=== PATIENT | male | born 1975 | race Caucasian/White ===

== ENCOUNTER 2016-07-04 23:34 | Observation (INO) ==
--- NOTE | 2016-07-05 03:17 | Emergency Department Note ---
Disposition Clinical Impression: Cellulitis of right lower extremity, Edema of right lower extremity Disposition: Admitted As Inpatient Condition: Good Time of Disposition: 05:28 Extremity Problem HPI - General Chief complaint: ED Skin/Abscess/Foreign Body Stated complaint: Cellulitus, Worse After Antibiotics Time Seen by Provider: 07/05/16 02:32 Source: patient Mode of arrival: ambulatory Limitations: no limitations Nursing Notes Reviewed: Yes Vital Signs Reviewed: Yes - History of Present Illness HPI Narrative: Patient is a 40-year-old male with no past medical history. He presents today due to cellulitis/abscess of the right lower extremity near the knee. Patient states that this began several days ago. He was seen by an ED 3-4 days ago, was told that he had no large amount of fluid that could be drained, was prescribed Bactrim and azithromycin for cellulitis and abscess. He has been taking these anabolic for 3 days. He states that the pain and swelling of the abscess site has produced. However, he states that the redness has extended, he also notes significant edema of the and ankle area that is developed over the past 1-2 days. He denies any numbness, tingling, weakness, fevers, abdominal pain, nausea, vomiting, diarrhea, chest pain, shortness of breath, calf pain. Pain Scale: 3 - Related Data Allergies Allergy/AdvReac Type Severity Reaction Status Date / Time Penicillins Allergy Anaphylaxis Verified 07/05/16 00:17 All systems ED: reviewed and negative except as stated. Constitutional: Denies: fever Cardiovascular: Denies: chest pain, palpitations Respiratory: Denies: cough, dyspnea Gastrointestinal: Denies: abdominal pain, nausea, vomiting, diarrhea Genitourinary: Denies: urgency, dysuria Musculoskeletal: Reports: other (RLE edema). Denies: back pain Integumentary: Reports: lesions. Denies: rash Neurological: Denies: headache, weakness, numbness, paresthesias Past Medical History - Past Medical History Attestation: Yes The following information was validated with the patient. Source: patient Medical history: Reports: no medical history Psychiatric history: Reports: no psych history - Social History Smoking Status: Never smoker Alcohol use: Reports: occasionally Drug use: Reports: none Physical Exam - General Limitations: no limitations General appearance: alert, in no apparent distress - Head Head exam: atraumatic, normocephalic, normal inspection - Eye Eye exam: Present: normal appearance, PERRL, EOMI - ENT ENT exam: normal exam, mucous membranes moist - Neck Neck exam: Present: normal inspection, full ROM, trachea midline - Chest Chest inspection: Present: normal inspection, symmetric chest wall rise - Respiratory Respiratory exam: Present: normal lung sounds bilaterally - Cardiovascular Cardiovascular exam: Present: regular rate, normal rhythm, normal heart sounds - Abdominal Exam Abdominal exam: Present: soft, Non-Tender. Absent: tenderness, distention, guarding, rebound, rigidity - Extremities Exam Extremities exam: Present: other (Patient has approximately 10 cm x 5 cm cellulitis with central induration and small opening with small amount of pus drainage, no appreciable fluctuance. RLE edema from knee down to ankle, no calf pain. +2/4 posterior tibial pulse.) - Neurological Exam Neurological exam: Present: alert, oriented X3. Absent: motor sensory deficit - Psychiatric Psychiatric exam: Present: normal affect, normal mood - Skin Skin exam: Present: warm, dry, normal color, other (see extremity section above for abscess/cellulitis description) Course Course Narrative: Vitals within normal limits on exam. Physical exam shows approximately 10 cm x 5 cm cellulitis with central induration and small opening with small amount of pus drainage, no appreciable fluctuance. RLE edema from knee down to ankle, no calf pain. +2/4 posterior tibial pulse. Basic labs were drawn. He had an elevated ESR, CRP. CBC and BMP WNL. CT was also obtained to assess for any deeper abscess or osteomyelitis - it showed Soft tissue swelling and edema without abscess or evidence to suggest osteomyelitis. Due to failure of outpatient therapy and right lower extremity edema, cellulitis, will admit for further care. I recommended that a Doppler of the right lower extremity be obtained as well to rule out DVT once admitted. Patient will be started on vancomycin prior to admission. Lower Extremity CT 07/05/16 03:15 IMPRESSION: Soft tissue swelling and edema without abscess or evidence to suggest osteomyelitis. D/ / Lee Heath MD / Lee Heath MD Interpreting Provider: eLe Heath MD Vital Signs Temperature 97.8 F 07/05/16 00:13 Pulse Rate 75 07/05/16 00:13 Respiratory Rate 20 07/05/16 00:13 Blood Pressure 124/77 07/05/16 00:13 O2 Sat by Pulse Oximetry 99 07/05/16 00:13 Temperature 97.8 F 07/05/16 00:13 Pulse Rate 58 07/05/16 06:18 Respiratory Rate 16 07/05/16 06:27 Blood Pressure 106/63 07/05/16 06:27 O2 Sat by Pulse Oximetry 94 07/05/16 06:18 Oxygen Delivery Oxygen Delivery Room Air Extremity Problem, [facility] Narrative Medical decision making narrative: Vitals within normal limits on exam. Physical exam shows approximately 10 cm x 5 cm cellulitis with central induration and small opening with small amount of pus drainage, no appreciable fluctuance. RLE edema from knee down to ankle, no calf pain. +2/4 posterior tibial pulse. Basic labs were drawn. He had an elevated ESR, CRP. CBC and BMP WNL. CT was also obtained to assess for any deeper abscess or osteomyelitis - it showed Soft tissue swelling and edema without abscess or evidence to suggest osteomyelitis. Due to failure of outpatient therapy and right lower extremity edema, cellulitis, will admit for further care. I recommended that a Doppler of the right lower extremity be obtained as well to rule out DVT once admitted. Patient will be started on vancomycin prior to admission. - Medical Records Medical records reviewed: Yes I reviewed the patient's medical records. - Lab Data Lab results reviewed: Yes I reviewed the patient's lab results. Result diagrams: 07/05/16 03:35 07/05/16 03:35 Lab Results 07/05/16 07/05/16 07/05/16 Range/Units 03:35 03:35 03:35 WBC 6.3 (4.3-11.1) K/mcL RBC 4.44 (4.19-5.50) M/mcL Hgb 13.3 (12.9-16.9) g/dL Hct 40.7 (37.5-50.1) % MCV 91.7 (83.0-100.0) fL MCH 30.0 (28.0-33.3) pg MCHC 32.7 (31.6-35.5) g/dL RDW 12.2 (11.5-14.5) % Plt Count 237 (140-400) K/mcL MPV 9.6 (9.4-12.4) fL Immature Gran % 0.2 (0-4) % Seg Neutrophils % 45.0 % Lymphocytes % 38.9 % Monocytes % 9.2 % Eosinophils % 5.7 % Basophils % 1.0 % Neutrophils # 2.8 (1.6-8.9) K/mcL Lymphocytes # 2.4 (0.6-4.6) K/mcL Monocytes # 0.6 (0.0-1.3) K/mcL Eosinophils # 0.4 (0.0-0.6) K/mcL Basophils # 0.1 (0.0-0.2) K/mcL ESR 37 H (0-10) mm/hr Sodium 140 (136-145) mEq/L Potassium 3.8 (3.5-4.5) mEq/L Chloride 109 (98-109) mEq/L Carbon Dioxide 23 (19-29) mEq/L BUN 16 (8-26) mg/dL Creatinine 1.03 (0.72-1.25) mg/dL Est GFR ( Amer) > 60 (> 60) Est GFR (Non-Af Amer) > 60 (> 60) BUN/Creatinine Ratio 16 (6-26) Glucose 96 (70-99) mg/dL Calculated Osmolality 291 (280-300) Calcium 9.2 (8.6-10.8) mg/dL C-Reactive Protein 11 H (Less than 5) mg/L - Radiology Data Radiology results reviewed: Yes I reviewed the patient's radiology results. Lower Extremity CT 07/05/16 03:15 IMPRESSION: Soft tissue swelling and edema without abscess or evidence to suggest osteomyelitis. D/ / Lee Heath MD / Lee Heath MD Interpreting Provider: Lee Heath MD S.B.A.R. - S.B.A.R. Situation: Demographics, MOA Background: Presenting Complaint, Relevant PMH, Meds, & Allergies Assessment: Vital Signs, Course and respsone to treatment, Exam Concerns, Patient/Family Expectation, Pertinant Lab Results Recommendation: Barrier(s) to disposition, Recommendation based on pending studies, treatments, or consults Milly Report Given to: Dr. Sloan Atkins Repor Time: 05:28 Attestation Statement - Attestation Attestation: I personally interviewed and examined this patient and my medical decision- making was reviewed with the ED Resident Physician, Dr. Morrison. I agree with the documented findings, disposition and treatment plan as described except to the extent set forth below. Patient is a 40-year-old white male otherwise healthy presents to the emergency department with an area of abscess and cellulitis located on his right lower extremity overlying the proximal tibia and fibula anteriorly. Patient states he was evaluated on Sunday morning and started on antibiotics, since that time patient states the area has started to spontaneously drain purulent material, and his entire right lower leg has become swollen although he denies any calf or lower leg pain. Patient has an area that was demarcated here with surrounding cellulitis around the abscess site approximately 4 cm in diameter and no evidence of proximal streaking. Redness and swelling spares the knee joint. Patient denies any fevers or chills, no nausea vomiting, and has been compliant with his antibiotic therapy and has been taking Bactrim and azithromycin. I agree with patient's physical exam documentation. Patient had labs including blood cultures sent and sent for CT of the right lower extremity to rule out intramuscular abscess versus early osteomyelitis. Patient with no evidence of subcutaneous abscess on CT, and also no erosive changes to the bone suggesting osteomyelitis. Patient does have just diffuse subcutaneous edema throughout his entire right lower leg including the hindfoot. Concerned with the amount of edema and swelling in the right lower extremity, will cover patient with vancomycin IV and admit the patient for further evaluation and Doppler imaging of the right lower extremity this morning when ultrasound arrives. Patient agrees with this plan. Patient has remained with stable vitals and stable blood pressure throughout his ED course.
[2016-07-05 03:45] LABS: Basophils # 0.1 K/mcL (0.0-0.2); Eosinophils # 0.4 K/mcL (0.0-0.6); Eosinophils % 5.7 %; Hematocrit 40.7 % (37.5-50.1); Hemoglobin 13.3 g/dL (12.9-16.9); Immature Granulocytes % 0.2 % (0-4); Lymphocytes # 2.4 K/mcL (0.6-4.6); Lymphocytes % 38.9 %; Mean Corpuscular HGB Conc 32.7 g/dL (31.6-35.5); Mean Corpuscular Volume 91.7 fL (83.0-100.0); Mean Platelet Volume 9.6 fL (9.4-12.4); Monocytes # 0.6 K/mcL (0.0-1.3); Monocytes % 9.2 %; Neutrophils # 2.8 K/mcL (1.6-8.9); Platelet Count 237 K/mcL (140-400); Red Blood Count 4.44 M/mcL (4.19-5.50); Red Cell Distribution Width 12.2 % (11.5-14.5)
[2016-07-05 03:59] LABS: BUN/Creatinine Ratio 16 (6-26); Blood Urea Nitrogen 16 mg/dL (8-26); C-Reactive Protein 11 mg/L (Less than 5); Calcium 9.2 mg/dL (8.6-10.8); Carbon Dioxide 23 mEq/L (19-29); Chloride 109 mEq/L (98-109); Glucose 96 mg/dL (70-99); Osmolality,Calculated 291 (280-300); Potassium 3.8 mEq/L (3.5-4.5); Sodium 140 mEq/L (136-145); eGFR For African Americans > 60 (> 60); eGFR For Non-African Americans > 60 (> 60)
[2016-07-05] MEDS ORDERED: Vancomycin 1,250 MG in D5% in Water 250 ML IVPB ONE (06:06)
--- NOTE | 2016-07-05 07:44 | Internal Med History&Physical ---
Date of Encounter: 07/05/16 Time of Encounter: 07:40 Assessment and Plan (1) Cellulitis of right lower extremity Current visit: Yes Status: Acute Acute cellulitis of the right leg jeans one open wound. This warmth happened due to trauma which is work-related. Failed outpatient therapy so he will be started IV antibiotics. Vancomycin and cefepime will be started. He is allergic to penicillin with airway swelling not requiring intubation however he has taken cephalexin before. wound culture will be obtained. I do not think the knee joint is involved. There is full range of motion of the knee joint. Patient is able to bear weight on the right lower extremity. Patient is not sure when was he given tetanus shots last time. He does not have PCP. Tetanus shot will be given. He is afebrile without leukocytosis. observation admission. Lovenox and famotidine will be given for DVT and peptic ulcer disease prophylaxis. He is full code Internal Medicine - H&P: HPI Chief complaint: right leg swelling History of present illness: Mr. Wang is a 40 year old male who has no known prior medical history presents to the emergency room today with main complain of rightly swelling warmth. 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 He noted that his jeans were torn and that. And it was a wound in his upper leg below the knee. He thought that this had happened from trauma/friction because of kneeling on his right knee. He started noticing swelling warmth tenderness in that area and extending downwards. It started noticing small amount of yellowish secretions from the problem. He denied any fever chills. Appetit is unchanged. On Sunday he went to [place] emergency room and was given Bactrim and azithromycin for cellulitis to which he has been compliance. However, although he noticed some improvement in the pain, swelling extended to involve his leg distally and so he sought medical advice or emergency room. Denies prior history of cellulitis. Denies prior history of marcescens infection. He had received a tetanus shot for a tendon repair but not sure if it was within the past 5 years. He denies IV drug abuse. He has full range of motion at the knee joints. He is able to bear weight on the right lower extremity. CT scan with contrast done in the emergency room shows no evidence of abscess formation Past Med Surg Social Fam HX - Past Medical History Medical history: no medical history Psychiatric history: no psych history - Social History Smoking Status: Never smoker Alcohol use: occasionally Drug use: none Internal Medicine - H&P: Meds Allergies Penicillins Allergy (Verified 07/05/16 00:17) Anaphylaxis All Systems PM: A 10-system review of systems was performed and is negative for pertinent findings except as documented above in the HPI. Review of systems: 10 point ROS is negative except for HPI. - Constitutional Vitals: Temp Pulse Resp BP Pulse Ox 97.8 F 58 16 106/63 94 07/05/16 00:13 07/05/16 06:18 07/05/16 06:27 07/05/16 06:27 07/05/16 06:18 Exam: Gen.: patient is alert and oriented times 3 not in distress. Cardiac: normal S1 S2 no additional sounds are murmurs chest: clear to auscultation abdomen: soft nontender nondistended normal bowel sounds right leg: warmed in the right upper leg below the knee level. No obvious flatulence. Slight increase in warmth in that area. Normal range of motion at the knee joints up to 150. Infect capillary circulation and intellect dorsalis pedis pulsation Internal Med - H&P Results - Labs CBC & Chem 7: 07/05/16 03:35 07/05/16 03:35
[2016-07-05] MEDS ORDERED: Vancomycin 1,250 MG in D5% in Water 250 ML IVPB SCH (08:00)
[2016-07-05] MEDS: Famotidine 20 MG TABLET PO SCH (09:04)
--- NOTE | 2016-07-05 11:19 | Venous Imaging Report ---
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 Findings Venous Duplex Results: Right: Venous imaging of the lower extremity reveals full patency and normal vessel compressibility of the right distal iliac, right common femoral, right superficial femoral, right popliteal, right posterior tibial, right peroneal, right great saphenous and right lesser saphenous. Doppler signals in the evaluated veins were normal. Left: Venous imaging of the lower extremity reveals full patency and normal vessel compressibility of the left common femoral. Doppler signals in the evaluated veins were normal. Prior Study: No prior study available for comparison. Lower Extremity Venous Duplex Side Vein Compress Spontaneous Flow Augment Diameter (cm) Depth (cm) Right Distal Iliac Normal Yes Phasic Yes Right Common Femoral Normal Yes Phasic Yes Right Superficial Femoral Normal Yes Phasic Yes Right Popliteal Normal Yes Phasic Yes Right Posterior Tibial Normal Yes Phasic Yes Right Peroneal Normal Yes Phasic Yes Right Great Saphenous Normal Yes Phasic Yes Right Lesser Saphenous Normal Yes Phasic Yes Left Common Femoral Normal Yes Phasic Yes Updated by Aditya Jackson MD on 07/05/2016 11:14:06 AM electronically signed on 07/05/2016 11:14:15 AM with status of Final
[2016-07-05] MEDS: Ibuprofen 400 MG TABLET PO PRN ×2 (14:20→23:39)
[2016-07-05] MEDS: Cefepime HCl 1,000 MG in D5% in Water (Mini-Bag+) 100 ML IVPB SCH (17:23)
[2016-07-05] MEDS: Vancomycin 1,250 MG in D5% in Water 250 ML IVPB SCH (19:53)
[2016-07-06 04:51] LABS: Basophils # 0.1 K/mcL (0.0-0.2); Eosinophils # 0.3 K/mcL (0.0-0.6); Eosinophils % 5.2 %; Hematocrit 41.5 % (37.5-50.1); Hemoglobin 13.4 g/dL (12.9-16.9); Immature Granulocytes % 0.3 % (0-4); Lymphocytes # 2.3 K/mcL (0.6-4.6); Lymphocytes % 36.8 %; Mean Corpuscular HGB Conc 32.3 g/dL (31.6-35.5); Mean Corpuscular Hemoglobin 29.9 pg (28.0-33.3); Mean Corpuscular Volume 92.6 fL (83.0-100.0); Mean Platelet Volume 10.1 fL (9.4-12.4); Monocytes # 0.5 K/mcL (0.0-1.3); Monocytes % 8.2 %; Platelet Count 249 K/mcL (140-400); Red Blood Count 4.48 M/mcL (4.19-5.50); Segmented Neutrophils % 48.5 %
[2016-07-06 05:00] LABS: BUN/Creatinine Ratio 12 (6-26); Blood Urea Nitrogen 12 mg/dL (8-26); C-Reactive Protein 4 mg/L (Less than 5); Calcium 9.5 mg/dL (8.6-10.8); Carbon Dioxide 26 mEq/L (19-29); Chloride 108 mEq/L (98-109); Glucose 94 mg/dL (70-99); Osmolality,Calculated 292 (280-300); Potassium 4.2 mEq/L (3.5-4.5); Sodium 141 mEq/L (136-145); eGFR For African Americans > 60 (> 60); eGFR For Non-African Americans > 60 (> 60)
[2016-07-06] MEDS: Cefepime HCl 1,000 MG in D5% in Water (Mini-Bag+) 100 ML IVPB SCH ×2 (05:48→18:32)
[2016-07-06] MEDS: *HR* Enoxaparin 40 MG/0.4 ML SYRINGE SQ SCH (05:49)
[2016-07-06] MEDS: Vancomycin 1,250 MG in D5% in Water 250 ML IVPB SCH (06:34)
[2016-07-06] MEDS: Famotidine 20 MG TABLET PO SCH (09:28)
--- NOTE | 2016-07-06 16:33 | Internal Med Progress Note ---
Date of Encounter: 07/06/16 Time of Encounter: 09:30 - Assessment and plan (1) MRSA cellulitis Current Visit: Yes Status: Suspected Assessment and plan: Preliminary wound culture consistent with gram-positive cocci presumptively staph. We will continue cefepime and vancomycin pending sensitivity results. Patient did fail outpatient therapy with Bactrim and azithromycin. Area is much improved and his inflammatory markers have trended down. Venous duplex negative. Lower extremity CT revealing soft tissue swelling with no evidence of abscess or osteomyelitis. Vital signs are stable, no leukocytosis. No indication for sepsis. We will add bacitracin as well topical daily. Small possibility of IV antibiotics, will await sensitivities. On examination, patient with mild erythema noted to his right knee. His edema has resolved. Distal leg remains neurovascularly intact. For the most part, his wound is indurated, no indication for drainage at this time, we will monitor. ITS Impressions Lower Extremity CT 07/05/16 03:15 IMPRESSION: Soft tissue swelling and edema without abscess or evidence to suggest osteomyelitis. D/ / Lee Heath MD / Lee Heath MD Interpreting Provider: Lee Heath MD 07/05/16 10:06 - Vascular Preliminary by Jewel Montoya [facility] Num: [id number] : 1975 Patient Age: 40 Right lower extremity venous doppler completed. Patient appears to be negative for DVT and SVT Initialized on 07/05/16 10:06 - END OF NOTE (2) Failure of outpatient treatment Current Visit: Yes Status: Acute (3) Cellulitis of right lower extremity Current Visit: Yes Status: Acute - Subjective Interval history: Patient seen and examined. On examination, patient sitting upright in bed. Patient denies pain at this time. Patient with numerous questions regarding his leg and his wound infection. - Constitutional Vitals: Temp Pulse Resp BP Pulse Ox 98.0 F 101 17 122/81 94 07/06/16 14:50 07/06/16 14:50 07/06/16 14:50 07/06/16 14:50 07/06/16 14:50 General appearance: Present: A&O X 3, pleasant, no acute distress, answers questions appropriately - Head Head exam: Present: atraumatic, normocephalic - Eye Eye exam: Present: PERRL, conjuntiva pink, sclera anicteric Pupils: Present: PERRL - Neck Neck exam general surgery: Present: supple, trachea midline. Absent: lymphadenopathy - Respiratory Respiratory exam: Present: CTAB. Absent: accessory muscle use, rales, respiratory distress, rhonchi, wheezes - Cardiovascular Cardiovascular exam: Present: RRR, +S1, +S2. Absent: diastolic murmur, gallop, rubs, systolic murmur - GI/Abdominal GI/Abdominal exam: Present: normal bowel sounds, soft, no peritoneal signs. Absent: distended, tenderness - Extremities Exam Extremities exam: Present: warm, radial pulses palpable and symetrical. Absent : calf tenderness, cyanotic, pedal edema - Expanded Lower Extremities Exam Knee exam: Present: erythema, swelling (mild), tenderness Lower Leg exam: Present: erythema Neuro vascular tendon exam: Present: no vascular compromise. Absent: abnormal cap refill, pulse deficit Gait: Present: observed and normal - Neurological Exam Neurological exam: Present: alert, CN II-XII intact, normal gait, oriented X3, no focal deficits, strengths equal and symetr throughout. Absent: pronater drift, facial droop, speech deficit - Skin Skin exam: Present: dry, intact, normal color, warm Internal Medicine: Result - Labs CBC & Chem 7: 07/06/16 03:43 07/06/16 03:43 Labs: Short CBC 07/06/16 Range/Units 03:43 WBC 6.2 (4.3-11.1) K/mcL Hgb 13.4 (12.9-16.9) g/dL Hct 41.5 (37.5-50.1) % Plt Count 249 (140-400) K/mcL Neutrophils # 3.0 (1.6-8.9) K/mcL BMP 07/06/16 03:43 Sodium 141 Potassium 4.2 Chloride 108 Carbon Dioxide 26 BUN 12 Creatinine 1.04 Glucose 94 Calcium 9.5 Consult Discharge Plan - Plan Referrals: Juany Cabral, [facility] [Advanced Practice Nurse] - 07/19/16 9:00 am (Please bring Photo ID, insurance card, and any medications you are currently taking. If you are unable to keep this appointment please cancel with in 24 hours of appointment. )
[2016-07-06] MEDS: Vancomycin 1,500 MG in D5% in Water 250 ML IVPB SCH (21:32)
[2016-07-07] MEDS: Cefepime HCl 1,000 MG in D5% in Water (Mini-Bag+) 100 ML IVPB SCH (06:13)
[2016-07-07] MEDS: *HR* Enoxaparin 40 MG/0.4 ML SYRINGE SQ SCH (06:24)
[2016-07-07] MEDS: Vancomycin 1,500 MG in D5% in Water 250 ML IVPB SCH (09:38)
[2016-07-07] MEDS: Famotidine 20 MG TABLET PO SCH (09:38)
[2016-07-07 11:18] VITALS: BP 125/71
--- NOTE | 2016-07-07 12:41 | Discharge Summary ---
Date of Encounter: 07/07/16 Time of Encounter: 09:30 - Discharge Diagnosis (1) MRSA cellulitis Priority: Primary Status: Acute Comments: Wound culture consistent with MRSA. Treated with cefepime and vancomycin and sending home on Clindamycin. Patient did fail outpatient therapy with Bactrim and azithromycin. Area is much improved and his inflammatory markers have trended down. Venous duplex negative. Lower extremity CT revealing soft tissue swelling with no evidence of abscess or osteomyelitis. Vital signs are stable, no leukocytosis. No indication for sepsis. We continue bacitracin. His edema has resolved. Distal leg remains neurovascularly intact. No indication for drainage during this admission- wound improved greatly during admission. ITS Impressions Lower Extremity CT 07/05/16 03:15 IMPRESSION: Soft tissue swelling and edema without abscess or evidence to suggest osteomyelitis. D/ / Lee Heath MD / Lee Heath MD Interpreting Provider: Lee Heath MD 07/05/16 10:06 - Vascular Preliminary by Jewel Montoya Acct Num: [id number] : 1975 Patient Age: 40 Right lower extremity venous doppler completed. Patient appears to be negative for DVT and SVT Initialized on 07/05/16 10:06 - END OF NOTE (2) Failure of outpatient treatment Priority: Primary Status: Acute (3) Cellulitis of right lower extremity Priority: Primary Status: Acute - Discharge Medications Prescriptions: Bacitracin OINT [Ak-Tracin] 1 appl TP BID #1 tube Clindamycin HCl 300 mg PO Q6H #40 capsule Home Medications: Sulfamethoxazole/Trimeth DS [Bactrim Ds] 1 tab PO BID 07/05/16 [History] Bacitracin OINT [Ak-Tracin] 1 appl TP BID #1 tube 07/07/16 [Rx] Clindamycin HCl 300 mg PO Q6H #40 capsule 07/07/16 [Rx] Allergies/Adverse Reactions: Allergies Penicillins Allergy (Verified 07/05/16 00:17) Anaphylaxis Procedures/tests Complete & Pending: Procedures Performed prior 72 hours Category Date Time Status Venous Doppler [EV venous imaging LE RT] Routine Y 07/05/16 07:37 Completed Date of admission: 07/05/16 06:10 Primary care physician: PCP NO Discharging clinician: Rosi Mercer Anticipated date of discharge: 07/07/16 - Patient Status Disposition: Home, Self-Care Condition: Good Functional capacity at discharge: independent ambulation Overall status at discharge: patient is back to baseline - Discharge Instructions Follow Up With: Juany Cabral KITCHENHAND [Advanced Practice Nurse] - 07/19/16 9:00 am (Please bring Photo ID, insurance card, and any medications you are currently taking. If you are unable to keep this appointment please cancel with in 24 hours of appointment. ) Additional Instructions: Follow-up with new primary care provider as scheduled - Diet and Activity Activity: increase activity as tolerated Diet: regular diet Hospital course: Mr. Wang is a 40 year old male with no past medical history. Patient presented to the emergency department chief complaint right lower extremity swelling, pain, and warmth. 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 After sustaining that wound, his leg progressively became more swollen and painful. Patient denies any fever or chills. He was seen at an outlying emergency department 3 days prior to this presentation and was sent home on Bactrim and azithromycin for presumed cellulitis. Unfortunately, his wound continued to worsen so he came to [facility]'s emergency Department. Right lower extremity CT consistent with soft tissue swelling and edema without indications of an abscess or osteomyelitis. Patient was started on cefepime and vancomycin and he was admitted to the hospitalist service for further evaluation and management. Lower extremity Doppler ruled out DVT. Patient's cellulitis improved greatly over the course of his 2 day admission. He never had any indications of sepsis. His vital signs remained stable. No leukocytosis. Inflammatory markers mildly elevated but trended down. Wound culture consistent with MRSA that unfortunately was resistant to Bactrim and cephalosporins. Patient with penicillin allergy (anaphylaxis), so he was sent home on by mouth clindamycin. He was also sent on topical bacitracin. There is no indication for incision and drainage during this admission. His surrounding erythema and edema on his leg had resolved and he remained with a wound under his right kneecap that did not be drained on day of discharge.selena was quite anxious during this admission regarding the MRSA diagnosis and he was given several pieces of information and a lot of education regarding this condition. He was discharged home in stable condition with close outpatient follow-up recommended. He was also set up with a new primary care provider for continuity and outpatient follow-up. ITS Impressions Lower Extremity CT 07/05/16 03:15 IMPRESSION: Soft tissue swelling and edema without abscess or evidence to suggest osteomyelitis. D/ / Lee Heath MD / Lee Heath MD Interpreting Provider: Lee Heath MD 07/05/16 10:06 - Vascular Preliminary by Jewel Montoya [facility] Num: [id number] : 1975 Patient Age: 40 Right lower extremity venous doppler completed. Patient appears to be negative for DVT and SVT Initialized on 07/05/16 10:06 - END OF NOTE - Time Spent with Patient Total time spent providing and/or coordinating discharge services: - Constitutional Vitals: Temp Pulse Resp BP Pulse Ox 98.0 F 77 14 125/71 96 07/07/16 11:10 07/07/16 11:10 07/07/16 11:10 07/07/16 11:10 07/07/16 11:10 General appearance: Present: A&O X 3, pleasant, no acute distress, answers questions appropriately - Head Head exam: Present: atraumatic, normocephalic - Eye Eye exam: Present: PERRL, conjuntiva pink, sclera anicteric Pupils: Present: PERRL - Neck Neck exam general surgery: Present: supple, trachea midline. Absent: lymphadenopathy - Respiratory Respiratory exam: Present: CTAB. Absent: accessory muscle use, rales, respiratory distress, rhonchi, wheezes - Cardiovascular Cardiovascular exam: Present: RRR, +S1, +S2. Absent: diastolic murmur, gallop, rubs, systolic murmur - GI/Abdominal GI/Abdominal exam: Present: normal bowel sounds, soft, no peritoneal signs. Absent: distended, tenderness - Extremities Exam Extremities exam: Present: warm, radial pulses palpable and symetrical. Absent : calf tenderness, cyanotic, pedal edema - Expanded Lower Extremities Exam Knee exam: Present: erythema, tenderness Neuro vascular tendon exam: Present: no vascular compromise Gait: Present: observed and normal - Neurological Exam Neurological exam: Present: alert, CN II-XII intact, normal gait, oriented X3, no focal deficits, strengths equal and symetr throughout. Absent: pronater drift, facial droop, speech deficit - Skin Skin exam: Present: dry, intact, normal color, warm - Expanded Skin Exam Type of lesion: Present: abrasion Distribution of rash: Present: RLE Description of rash: Present: crusting, discharge, erythematous, tenderness
[2016-07-07] MEDS ORDERED: Aminoglycoside Consult 1 EACH MC ONE (14:09)
== END 2016-07-07 14:10 | disposition home or self-care (01) ==
LOC: EMEROO 23:34 → 3BNU 23:34
PROVIDERS: ADMIT Hospitalist; ATTEND Nurse Practitioner Family